=== PATIENT | female | born 1970 | race Caucasian/White ===

== ENCOUNTER 2025-11-10 21:13 | Emergency (ER) | payer BC, SELFPAY ==
[2025-11-10 21:17] VITALS: BP 169/92
--- NOTE | 2025-11-10 22:41 | ED.SKININJ ---
HPI-Injury
General
Chief Complaint: Skin Surface Trauma
Source: patient
Exam Limitations: none
Time Seen by Provider: 11/10/25 22:16
Nursing documentation reviewed up to this point in time: agreed with
History of Present Illness-Injury
Initial Injury comments:
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 She states she was at home today hours ago when some glass
almost fell and broke and cut her hand. She is unsure of her last tetanus immunization but she went to check with her oncologist already
Past History
Past History
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
ED Past Surgical History: Orthopedic
Social History
Tobacco: Non-smoker
Alcohol: None
Personal:
Living: with family
Review of Systems
Review of Systems
Allergies reviewed?: Yes
All Other Systems: ROS reviewed and negative except as documented in HPI and ROS
Skin Exam
Laceration
Right hand dorsum over MCP joint third finger:
Length in cm: 1.5
Orientation: L shaped
Type of Laceration: simple
Any active bleeding?: no active bleeding
Distal skin color and temperature: normal-warm & good color
Normal distal neurovascular exam: Yes
Range of motion: full
Phy Exam
Physical Exam
Physical Exam:
PHYSICAL EXAMINATION:
General: no apparent distress, not acutely ill
Neuro: alert and oriented.
Psychiatric: well kept. interactive and cooperative
Musculoskeletal: Moves with ease
Skin: Warm, pink.
Course
Vital Signs
Initial and Last Documented VS:
Initial Vital Signs
Temp Pulse Resp BP Pulse Ox
98 F 101 16 169/92 96
11/10/25 21:17 11/10/25 21:17 11/10/25 21:17 11/10/25 21:17 11/10/25 21:17
Last Documented Vital Signs
Temp Pulse Resp BP Pulse Ox
98 F 101 16 169/92 96
11/10/25 21:17 11/10/25 21:17 11/10/25 21:17 11/10/25 21:17 11/10/25 22:47
Procedures
Laceration Closure
Right hand dorsum over MCP joint third finger:
Status of Wound: clean
Size of Wound in cm: 1.5
Description of Wound Edges: sharp
Preparation: cleaned with saline
Anesthesia: 1% Lidocaine with epi
Revision/Debridement: routine- no revision
Wound exploration: no tendon involvement
Type of Closure: single layer closure
Skin Closure Material: 4-0 prolene
Number of sutures: 4
Additional information:
Antibiotic and Band-Aid applied
MDM/Problems Addressed
MDM/Problems Addressed:
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 She states she was at home today hours ago when some glass
almost fell and broke and cut her hand. She is unsure of her last tetanus immunization but she went to check with her oncologist before she gets one.
*Pulse Oximetry
SaO2: 96
Oxygen Mode of Delivery: Room air
Patient hypoxic: not evaluated
*Critical Care Note
Total Time (30-74mins, 75-104mins- exclusive of procedures): Not Applicable
ED Attending Note
-
Portions of this chart may have been created with voice recognition software.� Occasional wrong word or��sound alike� substitutions may have occurred due to the inherent limitations of voice recognition software.
Discharge Plan
Departure
Patient Disposition: Home (Routine Discharge)
Date of Disposition: 11/10/25
Time of Disposition: 22:47
Patient with high blood pressure during this ER visit?: No
Condition: Good
Discharge Problem:
Laceration of right hand
Instructions: Laceration Repair With Stitches (DC)
Referrals:
Gala Gray PA-C [Family Provider, Family Practice] - Call in 1-3 days for appt
Activity Restrictions/Additional Instructions:
As we discussed, have sutures removed in 12 to 14 days. See your doctor return here immediately for signs of infection which may include, swelling, redness, pus drainage, red streak up the arm or fever.
Check with your doctor about whether or not you need Tdap
Interventions
Interventions:
*General Assessment Last Done: 11/10/25 21:17
*Neglect/Abuse Screening Last Done: 11/10/25 21:17
*ED COVID-19 Vaccine History Last Done: 11/10/25 22:59
*ED Influenza Vaccine History Last Done: 11/10/25 22:59
[facility] Fall Risk Assessment Tool Last Done: 11/10/25 21:13
*Risk Screen - Suicide (C-SSRS) Last Done: 11/10/25 21:17
*Nursing Disposition Last Done: 11/10/25 22:59
ED-Skin Assessment Last Done: 11/10/25 22:48
Discharge Date and Time
Discharge Date/Time: 11/10/25 23:00
Print Language: CHADIAN
== END 2025-11-10 23:00 | disposition home or self-care (01) ==
LOC: EMR 21:13
PROVIDERS: EMERGENCY PHYSICIAN Emergency Medicine; FAMILY PHYSICIAN Physician Assistant Medical
DX: S61.411A Laceration without foreign body of right hand, initial encounter (principal); W25.XXXA Contact with sharp glass, initial encounter; Y92.009 Unspecified place in unspecified non-institutional (private) residence as the place of occurrence of the external cause; C34.90 Malignant neoplasm of unspecified part of unspecified bronchus or lung; C79.31 Secondary malignant neoplasm of brain; C79.51 Secondary malignant neoplasm of bone
CPT/HCPCS: 99282; 12001